=== PATIENT | male | born 1955 | race Caucasian/White ===

== ENCOUNTER 2023-07-29 20:39 | Emergency (ER) | payer MEDICARE, OTHER ==
--- NOTE | 2023-07-29 20:55 | ED ---
General Adult HPI <Olayinka Emerson - Last Filed: 07/29/23 20:56> <Ginger Stanley - Last Filed: 07/30/23 19:43> - General Stated complaint: lft foot swelling Time Seen by Provider: 07/29/23 20:49 - History of Present Illness Initial comments: 67-year-old male presenting to the ED with a chief complaint of left foot swelling. Patient states he thinks he was bit by something 3 days ago of his left foot. Since then has noted increasing swelling of his left foot. Denies pain of this or itching. Denies history of CHF. Is not on diuretics at home. Denies fever or chills. (Olayinka Emerson) 1-year-old male presenting chief complaint of left lower extremity swelling. He states that this has been gradually increasing for about 3 days. Patient was at [place] and signed out early, left the facility 3 days ago. He last drink earlier today. He is having no tremoring, anxiety, diaphoresis. No chest pain or difficulty breathing. No dizziness. No cough, congestion, sore throat. No recent surgery or long travel. No history of blood clots. No pain. (Ginger Stanley) - Related Data Home Medications Medication Instructions Recorded Confirmed Aspirin 81 mg PO DAILY 07/15/15 01/30/16 Clopidogrel Bisulfate [Plavix] 75 mg PO DAILY 07/15/15 01/30/16 Colchicine 0.6 mg PO DAILY PRN 07/15/15 01/30/16 Famotidine [Pepcid] 20 mg PO BID 07/15/15 01/30/16 Ipratropium-Albuterol Nebulize 3 ml INHALATION RT-TID PRN 07/15/15 01/30/16 [Duoneb 0.5 mg-3 mg/3 ml Soln] Multivitamin [Men's Multi-Vitamin] 1 tab PO DAILY 07/15/15 01/30/16 allopurinoL [Allopurinol] 300 mg PO DAILY 07/15/15 01/30/16 Atorvastatin [Lipitor] 10 mg PO HS 01/30/16 01/30/16 cloNIDine HCL [Catapres] 0.1 mg PO HS 01/30/16 01/30/16 hydrOXYzine pamoate [Vistaril] 50 mg PO BID 01/30/16 01/31/16 Previous Rx's Medication Instructions Recorded Metoprolol Tartrate [Lopressor] 50 mg PO BID #60 tab 05/22/15 Divalproex ER [Depakote ER] 1,500 mg PO HS #90 tab.er.24h 07/21/15 OLANZapine [ZyPREXA] 20 mg PO HS #30 tablet 07/21/15 fluPHENAZine decanoate [Prolixin 25 mg IM Q14D #2 vial 07/21/15 Decanoate] hydrALAZINE HCL [Apresoline] 10 mg PO TID #0 tab 07/21/15 Acetaminophen Tab [Tylenol] 650 mg PO Q6HR PRN #0 tab 02/03/16 Levofloxacin [Levaquin] 500 mg PO Q24H #5 tab 02/03/16 Nicotine 14Mg/24Hr Patch [Habitrol] 1 patch TRANSDERM DAILY patch 02/03/16 Allergies Allergy/AdvReac Type Severity Reaction Status Date / Time latex Allergy Mild Rash/Hives Verified 07/29/23 21:24 Review of Systems ROS Other: All systems not noted in ROS Statement are negative. <Olayinka Emerson - Last Filed: 07/29/23 20:56> ROS Other: All systems not noted in ROS Statement are negative. <Ginger Stanley - Last Filed: 07/30/23 19:43> ROS Statement: Those systems with pertinent positive or pertinent negative responses have been documented in the HPI. Past Medical History Past Medical History: Chest Pain / Angina, COPD, Deep Vein Thrombosis (DVT), Hyperlipidemia, Hypertension, Myocardial Infarction (LA), Seizure Disorder Additional Past Medical History / Comment(s): Other HX: DVT L lung, pt has hx of hyperlipidemia, cholesterol R foot gout, siezure Last Myocardial Infarction Date:: 2011 History of Any Multi-Drug Resistant Organisms: None Reported Past Surgical History: Heart Catheterization With Stent Additional Past Surgical History / Comment(s): colonoscopy-normal Past Anesthesia/Blood Transfusion Reactions: No Reported Reaction Date of Last Stent Placement:: 2011 Past Psychological History: Depression, Schizophrenia Additional Psychological History / Comment(s): Pt lives with friend at this [facility]. Pt reports he was delusional when he came to ER but not hearing or seeing things presently Past Alcohol Use History: Daily, Occasional Additional Past Alcohol Use History / Comment(s): He smokes 1 at this time. Past Drug Use History: None Reported, Cocaine, Marijuana - Past Family History Father Additional Family Medical History / Comment(s): Father in his sleep of unknown causes at age 56yrs. Mother Family Medical History: Seizure Disorder Additional Family Medical History / Comment(s): Mother in her 70's after seizuring she fell down and . <Olayinka Emerson - Last Filed: 07/29/23 20:56> General Exam <Olayinka Emerson - Last Filed: 07/29/23 20:56> Limitations: no limitations General appearance: alert, in no apparent distress Head exam: Present: atraumatic, normocephalic Eye exam: Present: normal appearance, EOMI Neck exam: Present: normal inspection. Absent: meningismus Respiratory exam: Present: normal lung sounds bilaterally. Absent: respiratory distress, wheezes, rales, rhonchi, stridor Cardiovascular Exam: Present: regular rate, normal rhythm, normal heart sounds. Absent: systolic murmur, diastolic murmur, rubs, gallop, clicks Extremities exam: Present: pedal edema (L lower leg) Neurological exam: Present: alert, oriented X3 Psychiatric exam: Present: normal affect, normal mood Skin exam: Present: warm, dry <Ginger Stanley - Last Filed: 07/30/23 19:43> - General Exam Comments Initial Comments: Visual Physical Exam General: Well-appearing, nontoxic, no acute distress. Head: Normocephalic, atraumatic Eyes: PERRLA, EOMI ENT: Airway patent Chest: Nonlabored breathing Skin: No visual rash, normal skin tone Neuro: Alert and oriented 3 (Olayinka Emerson) Course Vital Signs 07/29/23 21:21 Temperature 97.8 F Pulse Rate 85 Respiratory 19 Rate Blood Pressure 167/86 O2 Sat by Pulse 97 Oximetry Medical Decision Making <Olayinka Emerson - Last Filed: 07/29/23 20:56> - Lab Data Result diagrams: 07/29/23 21:30 07/29/23 21:30 <Ginger Stanley - Last Filed: 07/30/23 19:43> - Medical Decision Making Quicknote portion performed. Signed Olayinka Emerson PA-C (Olayinka Emerson) Was pt. sent in by a medical professional or institution ([facility], [facility], urgent care, hospital, or senior care...) When possible be specific @ -No Did you speak to anyone other than the patient for history (EMS, parent, family, police, friend...)? What history was obtained from this source @ -No Did you review nursing and triage notes (agree or disagree)? Why? @ -I reviewed and agree with nursing and triage notes Were old charts reviewed (outside hosp., previous admission, EMS record, old EKG, old radiological studies, urgent care reports/EKG's, senior care records)? Report findings @ -No old charts were reviewed Differential Diagnosis (chest pain, altered mental status, abdominal pain women, abdominal pain men, vaginal bleeding, weakness, fever, dyspnea, syncope, headache, dizziness, GI bleed, back pain, seizure, CVA, palpatations, mental hea lth, musculoskeletal)? @ -Differential includes DVT, CHF, trauma, kidney disease, liver disease, this is not an all-inclusive EKG interpreted by me (3pts min.). @ -As above X-rays interpreted by me (1pt min.). @ -None done CT interpreted by me (1pt min.). @ -None done U/S interpreted by me (1pt. min.). @ -Ultrasound is negative for DVT What testing was considered but not performed or refused? (CT, X-rays, U/S, labs)? Why? @ -None What meds were considered but not given or refused? Why? @ -None Did you discuss the management of the patient with other professionals (professionals i.e. [facility], [facility], lab, RT, psych nurse, social sciences instructor, incident response lead, teacher, port patrol officer, case preparer and liner)? Give summary @ -No Was smoking cessation discussed for >3mins.? @ -No Was critical care preformed (if so, how long)? @ -No Were there social determinants of health that impacted care today? How? (Homel essness, low income, unemployed, alcoholism, drug addiction, transportation, low edu. Level, literacy, decrease access to med. care, [facility], rehab)? @ -Alcohol use disorder Was there de-escalation of care discussed even if they declined (Discuss DNR or withdrawal of care, Hospice)? DNR status @ -No What co-morbidities impacted this encounter? (DM, HTN, Smoking, COPD, CAD, Cancer, CVA, ARF, Chemo, Hep., AIDS, mental health diagnosis, sleep apnea, morbid obesity)? @ -None Was patient admitted / discharged? Hospital course, mention meds given and route, prescriptions, significant lab abnormalities, going to OR and other pertinent info. @ -67-year-old male presenting with chief complaint of swelling to the left lower extremity. No chest pain, difficulty breathing, lower extremity pain. No injury or trauma. He is neurovascularly intact. Ultrasound is negative for DVT. CBC and CMP require no action. The patient is resting comfortably showing no acute signs of distress. He is discharged home. Follow-up with PCP. Report back to ER with any new or worsening symptoms. Discussed return parameters and answered all questions. Patient conveyed verbal understanding and agreed to the plan. I discussed this case in detail with my attending Dr. Singletary Undiagnosed new problem with uncertain prognosis? @ -No Drug Therapy requiring intensive monitoring for toxicity (Heparin, Nitro, Insulin, Cardizem)? @ -No Were any procedures done? @ -No Diagnosis/symptom? @ -Lower extremity edema Acute, or Chronic, or Acute on Chronic? @ -Acute Uncomplicated (without systemic symptoms) or Complicated (systemic symptoms)? @ -Uncomplicated Side effects of treatment? @ -No Exacerbation, Progression, or Severe Exacerbation? @ -No Poses a threat to life or bodily function? How? (Chest pain, USA, LA, pneumonia, PE, COPD, DKA, ARF, appy, cholecystitis, CVA, Diverticulitis, Homicidal, Edith cidal, threat to staff... and all critical care pts) @ -Low likelihood (Ginger Stanley) - Lab Data Lab Results 07/29/23 07/29/23 Range/Units 21:30 21:30 WBC 9.9 (3.8-10.6) k/uL RBC 4.32 (4.30-5.90) m/uL Hgb 13.7 (13.0-17.5) gm/dL Hct 41.1 (39.0-53.0) % MCV 95.0 (80.0-100.0) fL MCH 31.7 (25.0-35.0) pg MCHC 33.3 (31.0-37.0) g/dL RDW 14.5 (11.5-15.5) % Plt Count 235 (150-450) k/uL MPV 8.0 Neutrophils % 55 % Lymphocytes % 31 % Monocytes % 7 % Eosinophils % 4 % Basophils % 1 % Neutrophils # 5.5 (1.3-7.7) k/uL Lymphocytes # 3.1 (1.0-4.8) k/uL Monocytes # 0.7 (0-1.0) k/uL Eosinophils # 0.4 (0-0.7) k/uL Basophils # 0.1 (0-0.2) k/uL Sodium 141 (137-145) mmol/L Potassium 3.9 (3.5-5.1) mmol/L Chloride 111 H (98-107) mmol/L Carbon Dioxide 23 (22-30) mmol/L Anion Gap 7 mmol/L BUN 16 (9-20) mg/dL Creatinine 0.85 (0.66-1.25) mg/dL Est GFR (CKD-EPI)AfAm >90 (>60 ml/min/1.73 sqM) Est GFR (CKD-EPI)NonAf >90 (>60 ml/min/1.73 sqM) Glucose 115 H (74-99) mg/dL Calcium 9.2 (8.4-10.2) mg/dL Total Bilirubin 0.1 L (0.2-1.3) mg/dL AST 32 (17-59) U/L ALT 15 (4-49) U/L Alkaline Phosphatase 75 (38-126) U/L Total Protein 6.3 (6.3-8.2) g/dL Albumin 3.7 (3.5-5.0) g/dL Disposition <Olayinka Emerson - Last Filed: 07/29/23 20:56> Is patient prescribed a controlled substance at d/c from ED?: No Time of Disposition: 00:45 <Ginger Stanley - Last Filed: 07/30/23 19:43> Clinical Impression: Leg edema Disposition: HOME SELF-CARE Condition: Good Instructions (If sedation given, give patient instructions): Leg Edema (ED) Additional Instructions: Follow-up with PCP. Report back to ER with any new or worsening symptoms. Referrals: Lyle Aguayo MD [STAFF PHYSICIAN] - 1-2 days
[2023-07-29 21:37] VITALS: BP 167/86; PULSE 85; RESP 19; TEMP 97.8
[2023-07-29 21:44] LABS: Basophils # (A) 0.1 k/uL (0-0.2); Basophils % (A) 1 %; Eosinophils # (A) 0.4 k/uL (0-0.7); Eosinophils % (A) 4 %; HCT 41.1 % (39.0-53.0); HGB 13.7 gm/dL (13.0-17.5); Lymphocytes # (A) 3.1 k/uL (1.0-4.8); Lymphocytes % (A) 31 %; MCH 31.7 pg (25.0-35.0); MCHC 33.3 g/dL (31.0-37.0); Monocytes # (A) 0.7 k/uL (0-1.0); Monocytes % (A) 7 %; Neutrophils # (A) 5.5 k/uL (1.3-7.7); Neutrophils % (A) 55 %; Platelet Count 235 k/uL (150-450); RBC 4.32 m/uL (4.30-5.90); RDW 14.5 % (11.5-15.5); WBC 9.9 k/uL (3.8-10.6)
[2023-07-29 22:03] LABS: ALT 15 U/L (4-49); AST 32 U/L (17-59); African American GFR (CKD) >90 (>60 ml/min/1.73 sqM); Albumin 3.7 g/dL (3.5-5.0); Alkaline Phosphatase 75 U/L (38-126); Anion Gap 7 mmol/L; Blood Urea Nitrogen 16 mg/dL (9-20); Calcium 9.2 mg/dL (8.4-10.2); Carbon Dioxide 23 mmol/L (22-30); Chloride 111 mmol/L (98-107); Glucose 115 mg/dL (74-99); Non-African American GFR(CKD) >90 (>60 ml/min/1.73 sqM); Potassium 3.9 mmol/L (3.5-5.1); Sodium 141 mmol/L (137-145); Total Bilirubin 0.1 mg/dL (0.2-1.3); Total Protein 6.3 g/dL (6.3-8.2)
--- NOTE | 2023-07-29 22:07 | US ---
EXAMINATION TYPE: US venous doppler duplex LE LT DATE OF EXAM: 07/29/2023 9:55 PM COMPARISON: NONE CLINICAL INDICATION: Male, 67 years old with history of r/o dvt; lt leg edema SIDE PERFORMED: Left TECHNIQUE: The lower extremity deep venous system is examined utilizing real time linear array sonog michael with graded compression, doppler sonography and color-flow sonography. VESSELS IMAGED: Common Femoral Vein Deep Femoral Vein Greater Saphenous Vein * Femoral Vein Popliteal Vein Small Saphenous Vein * Proximal Calf Veins (* superficial vessels) Left Leg: Negative for DVT IMPRESSION: Grayscale, color doppler, spectral doppler imaging performed of the deep veins of the lo wer extremities. There is normal flow, compressibility, vascular waveforms.
== END 2023-07-30 01:49 | disposition home or self-care (01) ==
LOC: EC 20:39
DX: R60.0 Localized edema (principal); F12.90 Cannabis use, unspecified, uncomplicated; F14.90 Cocaine use, unspecified, uncomplicated; Z91.040 Latex allergy status
CPT/HCPCS: 36415; 80053; 85025; 99284